=== PATIENT | female | born 1970 | race Caucasian/White ===

== ENCOUNTER 2017-05-25 23:58 | Emergency (ER) | payer OTHER ==
[~2017-05-25] VITALS: Ht 160 cm; Wt 55.0 kg
[~2017-05-25 23:58] MED LIST: ADVAI250I PO; ALBU6.7H INH; IBUP600T26 PO
[2017-05-26 00:39] VITALS: BP 134/83; PULSE 84; RESP 16; TEMP 98; O2SAT 96
[2017-05-26] MEDS ORDERED: ADVA250A INH (00:49)
[2017-05-26] MEDS ORDERED: ALBU6.7H INH (00:49)
[2017-05-26] MEDS ORDERED: TRAZ50TA12 PO (00:49)
[2017-05-26 01:34] LABS: AUTOMATED NEUTROPHIL # 6.6 TH/MM3 (1.8-7.7); BASOPHIL # 0.1 TH/MM3 (0-0.2); BASOPHIL % 0.6 % (0.0-2.0); EOSINOPHIL # 0.1 TH/MM3 (0-0.4); EOSINOPHIL % 1.2 % (0.0-4.0); HEMATOCRIT 47.7 % (35.0-46.0); HEMO FLAGS DIFF FINAL; LYMPH % 29.1 % (9.0-44.0); LYMPHOCYTE # 3.2 TH/MM3 (1.0-4.8); MEAN CELL VOLUME 104.4 FL (80.0-100.0); MEAN CORPUSCULAR HEMOGLOBIN 35.4 PG (27.0-34.0); MEAN CORPUSCULAR HGB CONC 33.9 % (32.0-36.0); MONO % 8.5 % (0.0-8.0); NEUT % 60.6 % (16.0-70.0); PLATELET COUNT 291 TH/MM3 (150-450); RED BLOOD COUNT 4.57 MIL/MM3 (4.00-5.30); RED CELL DISTRIBUTION WIDTH 13.9 % (11.6-17.2); WHITE BLOOD COUNT 10.9 TH/MM3 (4.0-11.0)
[2017-05-26 01:44] LABS: AMPHETAMINE, URINE NEG (NEG); BARBITURATES, URINE NEG (NEG); COCAINE, URINE NEG (NEG)
[2017-05-26] MEDS ORDERED: predniSONE 20 MG TAB PO ONE (01:45)
[2017-05-26] MEDS ORDERED: ALBUTEROL SULFATE 90 MCG/ACT HFA 8 GM INHALER INH SCH (01:50)
--- NOTE | 2017-05-26 01:55 | PD ---
HPI Chief Complaint: Psychiatric Symptoms Time Seen by Provider: 01:47 Travel History International Travel<30 days: No Contact w/Intl Traveler<30days: No Traveled to known affect area: No History of Present Illness HPI 46-year-old white female presents to emergency department under [place] act by PD. According to the [place] act in a discussion with the patient she had gotten upset with her brother. She is an alcoholic. She has been drinking earlier this evening. She does state that she may have made a suicidal statement but states that he never made any suicidal actions. Patient's brother had stated that she was attempting to crush up her sleeping pills and overdose. The patient states that she was merely transferring her pills from a plastic bag because she was on vacation into her containers. She denies any other drugs. She does smoke cigarettes. Patient is requesting her evening medications for her COPD asthma. PFSH Past Medical History Narrative Medical Asthma/COPD, anxiety, alcohol abuse Asthma: Yes Diminished Hearing: No Insomnia: Yes Respiratory: Yes (asthma) Tetanus Vaccination: Unknown Influenza Vaccination: No ?: Not Menopausal: Yes : 2 Para: 1 : 1 Past Surgical History Tonsillectomy: Yes (& ADENOIDS) Social History Alcohol Use: Yes (4-5 drinks per day) Tobacco Use: Yes (1 PPD) Substance Use: No Allergies-Medications (Allergen,Severity, Reaction): Coded Allergies: No Known Allergies (Unverified , 07/02/14) Reported Meds & Prescriptions Reported Meds & Active Scripts Active Reported Trazodone (Trazodone HCl) 50 Mg Tab 50 Mg PO HS Advair Diskus Inh (Fluticasone-Salmeterol Inh) 250-50 Mcg/Blist Aer 1 Puff INH BID Rinse mouth after use. Proventil Hfa 6.7 GM Inh (Albuterol Sulfate) 90 Mcg/Act Aer 2 Puff INH Q4-6H PRN Review of Systems Except as stated in HPI: all other systems reviewed are Neg Respiratory: Positive: Cough, Shortness of Breath, Wheezing Psychiatric: Positive: Depression, Suicidal Ideations, Mood Disorder, Substance Abuse ( now), No: Anxiety (she is), Homicidal Ideation Physical Exam Narrative GENERAL: Well-nourished, well-developed patient. Smells of EtOH and appears mildly intoxicated SKIN: Warm and dry. HEAD: Normocephalic and atraumatic. EYES: No scleral icterus. No injection or drainage. ENT: No nasal drainage noted. Mucous membranes pink. Airway patent. NECK: Supple, trachea midline. Moves head freely without obvious discomfort. CARDIOVASCULAR: Regular rate and rhythm without murmurs, gallops, or rubs. RESPIRATORY: Few fine neck sclerae wheezes. No Rales. No rhonchi. No respiratory distress. Satting 96% on room air. GASTROINTESTINAL: Abdomen soft, non-tender, nondistended. EXTREMITIES: No cyanosis or edema. BACK: Nontender without obvious deformity. No CVA tenderness. NEURO: Patient is alert and oriented. no sensorimotor deficits. Nonfocal. Normal speech. PSYCH: No delusions. No auditory or visual hallucinations. Data Data Last Documented VS Vital Signs Date Time Temp Pulse Resp B/P Pulse Ox O2 Delivery O2 Flow Rate FiO2 05/26/17 00:39 98.0 84 16 134/83 96 Orders Complete Blood Count With Diff (05/26/17 00:54) Comprehensive Metabolic Panel (05/26/17 00:54) Ed Urine Pregnancytest Poc (05/26/17 00:54) Psych Screen (05/26/17 00:54) Drug Screen, Random Urine (05/26/17 00:54) Alcohol (Ethanol) (05/26/17 00:54) Salicylates (Aspirin) (05/26/17 00:54) Tylenol (Acetaminophen) (05/26/17 00:54) Prednisone (Deltasone) (05/26/17 01:45) Albuterol Hfa Inh (Proair Hfa Inh) (05/26/17 01:50) Albuterol Hfa Inh (Ventolin Hfa Inh) (05/26/17 02:00) Labs Laboratory Tests Test 05/26/17 05/26/17 01:00 01:06 White Blood Count 10.9 TH/MM3 Red Blood Count 4.57 MIL/MM3 Hemoglobin 16.2 GM/DL Hematocrit 47.7 % Mean Corpuscular Volume 104.4 FL Mean Corpuscular Hemoglobin 35.4 PG Mean Corpuscular Hemoglobin 33.9 % Concent Red Cell Distribution Width 13.9 % Platelet Count 291 TH/MM3 Mean Platelet Volume 8.9 FL Neutrophils (%) (Auto) 60.6 % Lymphocytes (%) (Auto) 29.1 % Monocytes (%) (Auto) 8.5 % Eosinophils (%) (Auto) 1.2 % Basophils (%) (Auto) 0.6 % Neutrophils # (Auto) 6.6 TH/MM3 Lymphocytes # (Auto) 3.2 TH/MM3 Monocytes # (Auto) 0.9 TH/MM3 Eosinophils # (Auto) 0.1 TH/MM3 Basophils # (Auto) 0.1 TH/MM3 CBC Comment DIFF FINAL Differential Comment Sodium Level 139 MEQ/L Potassium Level 3.4 MEQ/L Chloride Level 102 MEQ/L Carbon Dioxide Level 28.2 MEQ/L Anion Gap 9 MEQ/L Blood Urea Nitrogen 5 MG/DL Creatinine 0.60 MG/DL Estimat Glomerular Filtration 108 ML/MIN Rate Random Glucose 84 MG/DL Calcium Level 8.7 MG/DL Total Bilirubin 0.3 MG/DL Aspartate Amino Transf 52 U/L (AST/SGOT) Alanine Aminotransferase 66 U/L (ALT/SGPT) Alkaline Phosphatase 93 U/L Total Protein 7.9 GM/DL Albumin 4.3 GM/DL Salicylates Level 3.8 MG/DL Acetaminophen Level LESS THAN 2.0 MCG/ML Ethyl Alcohol Level 270 MG/DL Urine Opiates Screen NEG Urine Barbiturates Screen NEG Urine Amphetamines Screen NEG Urine Benzodiazepines Screen NEG Urine Cocaine Screen NEG Urine Cannabinoids Screen NEG MDM Medical Decision Making Medical Screen Exam Complete: Yes Emergency Medical Condition: Yes Medical Record Reviewed: Yes Interpretation(s) Laboratory Tests Test 05/26/17 05/26/17 01:00 01:06 White Blood Count 10.9 TH/MM3 Red Blood Count 4.57 MIL/MM3 Hemoglobin 16.2 GM/DL Hematocrit 47.7 % Mean Corpuscular Volume 104.4 FL Mean Corpuscular Hemoglobin 35.4 PG Mean Corpuscular Hemoglobin 33.9 % Concent Red Cell Distribution Width 13.9 % Platelet Count 291 TH/MM3 Mean Platelet Volume 8.9 FL Neutrophils (%) (Auto) 60.6 % Lymphocytes (%) (Auto) 29.1 % Monocytes (%) (Auto) 8.5 % Eosinophils (%) (Auto) 1.2 % Basophils (%) (Auto) 0.6 % Neutrophils # (Auto) 6.6 TH/MM3 Lymphocytes # (Auto) 3.2 TH/MM3 Monocytes # (Auto) 0.9 TH/MM3 Eosinophils # (Auto) 0.1 TH/MM3 Basophils # (Auto) 0.1 TH/MM3 CBC Comment DIFF FINAL Differential Comment Sodium Level 139 MEQ/L Potassium Level 3.4 MEQ/L Chloride Level 102 MEQ/L Carbon Dioxide Level 28.2 MEQ/L Anion Gap 9 MEQ/L Blood Urea Nitrogen 5 MG/DL Creatinine 0.60 MG/DL Estimat Glomerular Filtration 108 ML/MIN Rate Random Glucose 84 MG/DL Calcium Level 8.7 MG/DL Total Bilirubin 0.3 MG/DL Aspartate Amino Transf 52 U/L (AST/SGOT) Alanine Aminotransferase 66 U/L (ALT/SGPT) Alkaline Phosphatase 93 U/L Total Protein 7.9 GM/DL Albumin 4.3 GM/DL Salicylates Level 3.8 MG/DL Acetaminophen Level LESS THAN 2.0 MCG/ML Ethyl Alcohol Level 270 MG/DL Urine Opiates Screen NEG Urine Barbiturates Screen NEG Urine Amphetamines Screen NEG Urine Benzodiazepines Screen NEG Urine Cocaine Screen NEG Urine Cannabinoids Screen NEG Differential Diagnosis MDM: High Differential diagnoses: Schizophrenia, schizoaffective disorder, bipolar, anxiety, depression, adjustment reaction, mood disorder NOS, ODD, depressive disorder NOS, dementia, dementia with agitation, psychosis NOS, substance induced mood disorder, intermittent explosive disorder, Asperger syndrome, infection,electrolyte abnormality, malingering. Narrative Course Mental health screening discussed with the patient. Psychiatric screen ordered. The patient states that she has not had her evening dose of Advair or albuterol. I've agreed to give her an albuterol inhaler which he may use every 4 hours as needed. She is also given 40 mg of prednisone by mouth. The patient has been medically clear for psychiatric evaluation. This is medical clearance for psychiatric admission, alcohol intoxication, COPD Diagnosis Primary Impression: Medical clearance for psychiatric admission Additional Impressions: Alcohol intoxication Qualified Code: F10.920 - Alcohol intoxication, uncomplicated COPD (chronic obstructive pulmonary disease) Qualified Code: J44.9 - Chronic obstructive pulmonary disease, unspecified COPD type Condition: Stable Marko Harley May 26, 2017 01:55
[2017-05-26 02:02] LABS: ALT (GPT) 66 U/L (10-53); ANION GAP 9 MEQ/L (5-15); AST (GOT) 52 U/L (15-37); BICARBONATE 28.2 MEQ/L (21.0-32.0); BLOOD UREA NITROGEN 5 MG/DL (7-18); CHLORIDE 102 MEQ/L (98-107); GLOMERULAR FILTRATION RATE 108 ML/MIN (>89); POTASSIUM 3.4 MEQ/L (3.5-5.1); SODIUM (NA) 139 MEQ/L (136-145)
[2017-05-26 02:04] LABS: ALKALINE PHOSPHATASE 93 U/L (45-117); TOTAL BILIRUBIN ADULT 0.3 MG/DL (0.2-1.0)
[2017-05-26 02:10] LABS: ACETAMINOPHEN LESS THAN 2.0 MCG/ML (10.0-30.0)
[2017-05-26] MEDS: ALBUTEROL SULFATE 90 MCG/ACT HFA 18 GM INHALER INH SCH ×3 (02:10→08:00)
[2017-05-26] MEDS ORDERED: POTASSIUM CHLORIDE 20 MEQ CONTROLLED RELEASE TAB PO ONE (02:15)
--- NOTE | 2017-05-26 07:54 | PD.PSY.CON ---
Provisional Diagnosis Admission Date Date of consultation 05/26/2017 [place] I. 1. Alcohol dependence with intoxication, intoxication resolved [place] II. Deferred [place] V. GAF is 60, decreased secondary to substance use History of Present Illness Service Psychiatry Consult Requested By Emergency department Reason for Consult [place] act Primary Care Physician Unknown HPI Ms. Olson is a 46-year-old female with a reported history of alcohol use disorder who presents under a [place] act by law enforcement alleging that after an altercation with her brother she threatened to overdose on pills. Patient's alcohol level on presentation here was 270. Reviewing the electronic medical record, I see no prior psychiatric contact within our system. Patient seen and examined with nurse. Chart reviewed. Case discussed with nursing staff. There is been no evidence of any behavioral disturbance while under observation in the emergency department overnight. On my examination this morning, the patient is clinically sober. She says that she had been drinking and got into an argument with her brother who lives in [place]. She reports that the 2 have a long-term fractious relationship. She says that she obliquely mentioned the possibility of overdosing on her trazodone but she adamantly denies that she had any balbir lida suicidal ideation, intent or plan at the time. She denies any suicidal or homicidal ideation, intent or plan now and contracts for safety. She says that she wants to live because she is a born -again Buddhist and has granddaughters and a son. No depressive or hypomanic/ manic symptoms in evidence. She denies any audiovisual hallucinations and I can elicit no delusional beliefs. The remainder of the psychiatric ROS is negative. The patient is requesting discharge from the psychiatric emergency room this morning. Past psychiatric history: The patient endorses a history of "mild depression" for which she has seen a Buddhist counselor in the past. She is not currently under the care of a psychiatrist. She denies a history of psychiatric admissions or suicide attempts. Family history: The patient denies a family history of serious mental illness or suicide. She does report a fairly extensive history of alcoholism in her family. Chemical dependency history: The patient reports that she previously consumed large quantities of liquor but has switched to wine. She currently consumes 45 boxes of wine daily. She is active in [employer] and has a sponsor. She denies a history of DTs or seizures. She denies consequences from her substance use. She denies any other substance use. Social history: Patient reports that she lives alone. She is . She has a son. She has her GED. She works in a managerial setting. She denies any legal history. She denies any access to guns or firearms. Nurse Johanny in the [facility] has obtain collateral from the patient's friend Leann , and she articulates no concerns about patient being a risk of harm to herself or others and is comfortable with the patient leaving the emergency room at this time. Review of Systems Except as stated in HPI: all other systems reviewed are Neg Past Family Social History Coded Allergies: No Known Allergies (Unverified , 07/02/14) Past Medical History see emr Reported Medications Trazodone 50 Mg Tab50 Mg PO HS #30 TAB Ref 0 05/26/17 Fluticasone-Salmeterol Inh (Advair Diskus Inh)250-50 Mcg/Blist Aer1 Puff INH BID #1 INHALER Ref 0 Rinse mouth after use. 05/26/17 Albuterol 6.7 GM Inh (Proventil Hfa 6.7 GM Inh)90 Mcg/Act Aer2 Puff INH Q4-6H PRN (SHORTNESS OF BREATH) #1 INHALER Ref 0 05/26/17 Current Medications Medications (Trade) Dose Ordered Sig/Brittany Route Start Time Stop Time Status Last Admin (Ventolin Hfa Inh) 2 puff Q4HR INH 05/26/17 02:00 05/27/17 01:59 05/26/17 02:10 Patient's Strengths (min. 2) has sponsor. verbal. Physical Exam PE completed by ED provider. On my examination today, no acute distress. No motor abnormalities noted. Labs and vital signs reviewed: Vital Signs Vital Signs Date Time Temp Pulse Resp B/P Pulse Ox O2 Delivery O2 Flow Rate FiO2 05/26/17 00:39 98.0 84 16 134/83 96 Lab Results Item Value Date Time White Blood Count 10.9 TH/MM3 05/26/17 0100 Hemoglobin 16.2 GM/DL H 05/26/17 0100 Platelet Count 291 TH/MM3 05/26/17 0100 Sodium Level 139 MEQ/L 05/26/17 0100 Potassium Level 3.4 MEQ/L L 05/26/17 0100 Chloride Level 102 MEQ/L 05/26/1799 Carbon Dioxide Level 28.2 MEQ/L 05/26/1799 Blood Urea Nitrogen 5 MG/DL L 05/26/1799 Creatinine 0.60 MG/DL 05/26/1799 Aspartate Amino Transf (AST/SGOT) 52 U/L H 05/26/1799 Alanine Aminotransferase (ALT/SGPT) 66 U/L H 05/26/1799 Alkaline Phosphatase 93 U/L 05/26/1799 Ethyl Alcohol Level 270 MG/DL H 05/26/1799 Tox negative. Mental Status Examination Patient is in hospital gown. She is well groomed. She is awake and alert and oriented to person and hospital least. No delirium. No motor abnormalities noted. Speech within normal limits for rate, tone and volume. Language and fund of knowledge seem average. Memory grossly intact on clinical exam. Mood fair and affect blunted. Thought process linear. No loosening of associations. No delusions elicited. No audiovisual hallucinations. Denies suicidal or homicidal ideation, intent or plan. Insight and judgment are fair. Assessment & Plan Problem List: (1) Alcohol dependence with intoxication ICD Code: F10.229 Assessment & Plan 46-year-old female with a history of alcohol use issues presents under [place] act after making suicidal threats in the context of intoxication and during an argument with her brother. Now sober, no evidence of ongoing suicidality. Denies suicidal or homicidal ideation. No evidence of unstable mental illness other than the substance use issues. Attending to basic needs. Reassuring collateral from friend. Does not meet [place] act criteria after weighing the relevant factors. [place] act lifted. Patient is psychiatrically clear for discharge from the ED. Counseled patient to pursue chemical dependency evaluation and treatment on outpatient basis. Counseled patient to return to the psychiatric emergency room for any concerning psychiatric symptoms. Thank you for this consultation. Request HC Surrog/Guard Advoc?: No Problem Qualifiers (1) Alcohol dependence with intoxication: Qualified Code: F10.220 - Alcohol dependence with uncomplicated intoxication Lenny Andreson MD May 26, 2017 07:54
== END 2017-05-26 07:56 | disposition home or self-care (01) ==
LOC: NED 23:58 → NEPD 05-26 07:56
DX: Z02.89 Encounter for other administrative examinations (principal); F10.920 Alcohol use, unspecified with intoxication, uncomplicated; J44.9 Chronic obstructive pulmonary disease, unspecified; F10.220 Alcohol dependence with intoxication, uncomplicated; F17.200 Nicotine dependence, unspecified, uncomplicated; Z79.899 Other long term (current) drug therapy; Z87.09 Personal history of other diseases of the respiratory system; Z86.59 Personal history of other mental and behavioral disorders
CPT/HCPCS: 80053; 80307; 84703; 85025; 99284; J7512